=== PATIENT | male | born 1950 | race Caucasian/White ===

== ENCOUNTER 2017-09-19 07:15 | Day surgery (SDC) | payer BC ==
[~2017-09-19] VITALS: Ht 162.6 cm; Wt 63.1 kg
[~2017-09-19 07:15] MED LIST: ASPIRIN 32325 MG/TAB PO; LORTAB 5/500 501 TAB PO
[2017-09-19] MEDS ORDERED: PRINIVIL10 MG PO (07:53)
[2017-09-19] MEDS ORDERED: ASPIRIN 32325 MG/TAB PO (08:21)
[2017-09-19 09:30] VITALS: BP 104/68; PULSE 68; TEMP 98.3
[2017-09-19 09:50] VITALS: BP 119/77; PULSE 63; TEMP 98.3
[2017-09-19 10:05] VITALS: BP 113/69; PULSE 70
[2017-09-19 10:20] VITALS: BP 123/79; PULSE 69
[2017-09-19 10:35] VITALS: BP 130/78; PULSE 68
[2017-09-19 11:05] VITALS: BP 140/89; PULSE 68
== END 2017-09-19 11:38 | disposition home or self-care (01) ==
LOC: SDCO 07:15
DX: J42 Unspecified chronic bronchitis (principal); J84.10 Pulmonary fibrosis, unspecified; I10 Essential (primary) hypertension; D64.9 Anemia, unspecified; N40.0 Benign prostatic hyperplasia without lower urinary tract symptoms; Z77.22 Contact with and (suspected) exposure to environmental tobacco smoke (acute) (chronic); Z83.6 Family history of other diseases of the respiratory system
CPT/HCPCS: J2704; J2920; J7120